=== PATIENT | female | born 1995 | race Caucasian/White ===

== ENCOUNTER → 2017-12-12 | Outpatient (CLI) | payer OTHER ==
[~2017-12-12] MED LIST: ACET500T68 PO; ETON68IM SQ; LOR5/325 PO; ONDA4TAB PO
--- NOTE | 2017-12-12 09:07 | RADIOLOGY IMAGING REPORT ---
[place] [facility] [place] NAME: Tiara Paula : 1995 MR: [id number] V: [id number] EXAM DATE: ORDERING PHYSICIAN: OSMIN BAKER TECHNOLOGIST: Location: [facility] [place] Patient: Tiara Paula : 1995 Visit/Account:[id number] Date of Sevice: 12/12/2017 Renal ultrasound. HISTORY: Right flank pain. COMPARISON: CT scan 08/08/2015. Right renal length: 9.5 cm. Right renal cortical thickness: Normal. Right renal echogenicity: Normal. Right hydronephrosis: No. Right perinephric fluid collections: No. Right renal calcifications: Yes. Left renal length: 9.9 cm. Left renal cortical thickness: Normal. Left renal echogenicity: Normal Left hydronephrosis: No. Left perinephric fluid collections: No. Left renal calcifications: No. Bladder prevoid volume: 55.9 ml. Bladder post void volume: 2.2 ml. Right ureteral jet: Present. Left ureteral jet: Present. The ureters are obscured. The abdominal aorta and inferior vena cava are partially obscured. A 4 mm echogenic nonshadowing focus is present in the upper pole of the right kidney. IMPRESSION: Nonobstructing right nephrolithiasis. Otherwise negative kidneys. Report Dictated By: Marvin Zhou MD at 12/12/2017 8:59 AM Report E-Signed By: Marvin Zhou MD at 12/12/2017 9:02 AM WSN:[id number]
== END ==
LOC: US 01:05
PROVIDERS: ATTEND Physician Assistant
DX: N20.0 Calculus of kidney (principal)
CPT/HCPCS: 76705

== ENCOUNTER → 2018-12-07 | Outpatient (REF) | payer OTHER | PROVIDERS: ATTEND Family Medicine | DX: R19.7 Diarrhea, unspecified (principal) | CPT/HCPCS: 87045; 87177 ==